=== PATIENT | female | born 1960 | race Caucasian/White ===

== ENCOUNTER 2018-07-23 06:22 | Day surgery (SDC) | payer OTHER ==
[2018-07-19 11:12] VITALS: BMI 26.5
[~2018-07-23 06:22] MED LIST: HEPARIN SODIUM,PORCINE 5,000 UNIT/ML 1 ML VIAL SQ ONE; HYDROmorphone 0.5 MG/0.5 ML SYRINGE IVP PRN; LACTATED RINGERS 1,000 ML IV SCH; LIDOCAINE 1% 20 ML VIAL (10MG/ML) FOR IV START INTRADERMA PRN; Pre Op ABX Message 1 EACH MISC MISCELLANE ONE
[2018-07-23] MEDS ORDERED: SCOPOLAMINE 1.5MG/72HR PATCH TRANSDERM ONE (07:07)
[2018-07-23] MEDS ORDERED: ONDANSETRON 4 MG/2 ML VIAL IVP ONE (07:08)
[2018-07-23] MEDS ORDERED: DEXAMETHASONE SOD PHOSPHATE 10 MG/ML 1 ML VIAL IV ONE (07:09)
[2018-07-23] MEDS ORDERED: ceFAZolin IN SWFI 2 GM/20 ML SYRINGE IVP STA (07:29)
--- NOTE | 2018-07-23 07:29 | P.GSHP ---
History of Present Illness H&P Date: 07/23/18 CHIEF COMPLAINT: Back mass HISTORY OF PRESENT ILLNESS: The patient is a 58 year-old female with history of lipomas of the upper back. She presents today for surgical excision. PAST MEDICAL HISTORY: Please see list. PAST SURGICAL HISTORY: Please see list. MEDICATIONS: Please see list. ALLERGIES: Please see list. SOCIAL HISTORY: No illicit drug use FAMILY HISTORY: No reports of Crohn disease or ulcerative colitis. REVIEW OF ORGAN SYSTEMS: CONSTITUTIONAL: No reports of fevers or chills. GI: Denies any blood in stools or constipation. PHYSICAL EXAM: VITAL SIGNS: Stable Musculoskeletal: Approximately 5 cm lipomas, superficial, along the right upper back. SKIN: Lesion identified along bilateral thighs. GENERAL: Well developed and in no acute distress. Pleasant. HEENT: No sclera icterus. Extraocular movements grossly intact. Moist buccal mucosa. Head is atraumatic, normocephalic. Hears conversational speech. No nasal drainage. NECK: Supple without lymphadenopathy. No JV distention. CHEST: Non-labored respirations and equal bilateral excursions. CARDIOVASCULAR: Regular rate and rhythm. Palpable 2+ radial pulses. ABDOMEN: Soft. Non-tender. Nondistended. NEUROLOGIC: No focal or lateralizing signs. PSYCH: Appropriate affect. Alert and oriented to person, place and time. ASSESSMENT: 1. Lipomas along the upper back. PLAN: 1. Will proceed of excision of subcutaneous tumor along the upper back. 2. DVT prophylaxis. 3. Antibiotic prophylaxis. 4. Time of recovery, at least one week. Past Medical History Past Medical History: Cancer, COPD, GERD/Reflux, Memory Impairment, Skin Disorder Additional Past Medical History / Comment(s): Hx cervical and uterine cancer yrs ago. Eczema, constipation, bilateral carpal tunnel hands/wrists, varicose veins. History of Any Multi-Drug Resistant Organisms: None Reported Past Surgical History: Hysterectomy Past Anesthesia/Blood Transfusion Reactions: No Reported Reaction Past Psychological History: No Psychological Hx Reported Smoking Status: Former smoker Past Alcohol Use History: Occasional Additional Past Alcohol Use History / Comment(s): Quit smoking 4 yrs ago, smoked since teens, 1 PPD. Past Drug Use History: Marijuana Additional Drug Use History / Comment(s): Marijuana use on weekends. - Past Family History Mother Family Medical History: No Reported History Medications and Allergies Home Medications Medication Instructions Recorded Confirmed Type Calcium Carbonate [Tums] 500 mg PO QID PRN 07/19/18 07/23/18 History Allergies Allergy/AdvReac Type Severity Reaction Status Date / Time shellfish derived [Shellfish] Allergy Dyspnea Verified 07/19/18 10:56 Surgical - Exam Vital Signs Temp Pulse Resp BP Pulse Ox 97.6 F 81 18 136/77 99 07/23/18 06:49 07/23/18 06:49 07/23/18 06:49 07/23/18 06:49 07/23/18 06:49
[2018-07-23] MEDS ORDERED: BUPIVACAIN-EPI 0.25%-1:200,000 30 ML VIAL SQ ONE (07:33)
[2018-07-23] MEDS ORDERED: MIDAZOLAM 2 MG/2 ML VIAL ONE (07:45)
[2018-07-23] MEDS ORDERED: PROPOFOL 10 MG/ML 20 ML VIAL IV ONE (07:45)
[2018-07-23] MEDS ORDERED: fentaNYL (PF) 50 MCG/ML 2 ML AMP ONE (07:45)
[2018-07-23] MEDS ORDERED: LIDOCAINE 1% INJ 10MG/ML (20 ML MDV) ONE (07:45)
[2018-07-23] MEDS ORDERED: SUCCINYLCHOLINE CHLORIDE 100 MG/5 ML SYR IV ONE (07:45)
[2018-07-23] MEDS ORDERED: ePHEDrine SULFATE/0.9% NACL/PF 50 MG/5 ML SYRINGE IV ONE (07:45)
[2018-07-23 08:59] VITALS: TEMP 97
--- NOTE | 2018-07-23 09:09 | P.OP ---
Date of Procedure: 07/23/18 Description of Procedure: SURGEON: BECKA JACK MD RESOURCE TECHNICIAN: None. PREOPERATIVE DIAGNOSES: 1. Right upper back intramuscular lipoma, 7 x 7 cm POSTOPERATIVE DIAGNOSES: 1. Right upper back intramuscular lipoma, 7 x 7 cm PROCEDURES PERFORMED: 1. Excision of right intramuscular subfascial upper back lipoma 7 x 7 cm 2. Complex of closure upper back incision 8 cm ANESTHESIA: GETA with local ESTIMATED BLOOD LOSS: 5 mL. SPECIMENS REMOVED: Right upper back intramuscular lipoma COMPLICATIONS: None. INDICATIONS: The patient is a 58-year-old female with right upper back lipoma. Now she presents for surgical intervention. Benefits and risks of surgical intervention were described including bleeding, infection. Informed consent was obtained. DESCRIPTION OR PROCEDURE: Patient was brought into the operating room, laid in prone position. After general, the back was prepped and draped in a standard sterile fashion with ChloraPrep. Timeout protocol was confirmed with the surgical team regarding the patient's name, procedure to be performed including preoperative medications. DVT prophylaxis was confirmed. A field block was placed of the back. Indelible marker was placed around the tumor 7 x 7 cm. An incision using #15 blade was made along the marking into the dermis and subcutaneous tissue. Electro-Bovie cautery was used to excise the lesion deep to the fascia and muscle in a transverse elliptical fashion. Undermining was performed along for closure. 0 Vicryl for the deep subcutaneous tissue followed by 3-0 Vicryl was placed in interrupted fashion. 4-0 Monocryl in a running subcuticular fashion was placed along the dermis. The skin was cleansed and Exofin tape with liquid was applied for a four layer closure. The incision was covered with Optifoam dressing. Local anesthetic was placed. At the end of the procedure, needle, sponge, and instrument count was verified correct by surgical assistant. The patient was awoken and taken to the second stage postanesthesia care unit. The patient tolerated the procedure well. Operative Findings: 1. Right upper back intramuscular lipoma removed from the trapezius muscle 7 x 7 cm Plan - Discharge Summary New Discharge Prescriptions: New Ibuprofen [Motrin] 600 mg PO Q8HR PRN #30 tab PRN Reason: Pain No Action Calcium Carbonate [Tums] 500 mg PO QID PRN PRN Reason: Heartburn Discharge Medication List Calcium Carbonate [Tums] 500 mg PO QID PRN 07/19/18 [History] Ibuprofen [Motrin] 600 mg PO Q8HR PRN #30 tab 07/23/18 [Rx] Follow up Appointment(s)/Referral(s): Becka Jack MD [STAFF PHYSICIAN] - 08/10/18 Patient Instructions/Handouts: Skin Adhesive Care (DC) Activity/Diet/Wound Care/Special Instructions: Do not remove dressing until 07/28/2018. May shower. No bathtub soaks. Careful of stretching the back skin to avoid puncturing your incision. Do not remove clear tape underneath dressing until seen by surgeon Discharge/Stand Alone Forms: Work/School Release Discharge Disposition: HOME SELF-CARE
[2018-07-23 10:13] VITALS: BP 110/68; PULSE 88; RESP 18
--- NOTE | 2018-07-23 11:09 | P.PN ---
Progress Note - Text Progress Note Date: 07/23/18 To Whom It May Concern: Sandy Melendez is under my medical care. No lifting overhead or lifting over 4 pounds in 1 week. Will be off work 07/23/2018 to 08/01/18. She may return to work 08/02/2018 with 20 pound weight lifting restriction ending 08/23/18. Regards, Becka Jack
== END 2018-07-23 10:47 | disposition home or self-care (01) ==
LOC: OR 06:22
PROVIDERS: ATTEND Surgery Plastic and Reconstructive Surgery
DX: D17.9 Benign lipomatous neoplasm, unspecified (principal); J44.9 Chronic obstructive pulmonary disease, unspecified; K21.9 Gastro-esophageal reflux disease without esophagitis; R41.3 Other amnesia; Z85.41 Personal history of malignant neoplasm of cervix uteri; L30.9 Dermatitis, unspecified; F17.200 Nicotine dependence, unspecified, uncomplicated; I83.90 Asymptomatic varicose veins of unspecified lower extremity; Z91.013 Allergy to seafood; Z85.42 Personal history of malignant neoplasm of other parts of uterus
CPT/HCPCS: 21933; 13101; 13102; 88304; J2250; J1644; J1100; J2405; J2001; J3010; J0330; J2704